=== PATIENT | male | born 2000 | race Caucasian/White ===

== ENCOUNTER 2022-08-27 18:04 | Inpatient (IN) | payer OTHER ==
[~2022-08-27] VITALS: Ht 170.2 cm; Wt 77.3 kg
[2022-08-27] MEDS ORDERED: fentaNYL 100 MCG/2 ML INJECTION IV ONE (18:35)
[2022-08-27] MEDS ORDERED: NS 1,000 ML IV SCH (18:50)
[2022-08-27 19:16] LABS: HEMOGLOBIN 13.7 g/dl (13.5-17.5); MEAN CORPUSCULAR HEMOGLOBIN 29.9 pg (27.0-33.0); MEAN CORPUSCULAR HGB CONC 34.3 g/dl (32.0-36.5); MEAN CORPUSCULAR VOLUME 87.3 fl (80.0-96.0); PLATELET COUNT, AUTOMATED 229 10^3/uL (150-450); RED BLOOD COUNT 4.58 10^6/uL (4.30-6.10); WHITE BLOOD COUNT 12.9 10^3/uL (4.0-10.0)
[2022-08-27] MEDS ORDERED: HOME MED LIST COMPLETE! XX SCH (19:30)
[2022-08-27 19:39] LABS: BLOOD UREA NITROGEN 13 MG/DL (9-23); CALCIUM LEVEL 8.8 MG/DL (8.5-10.1); CARBON DIOXIDE LEVEL 26 MMOL/L (20-31); CHLORIDE LEVEL 104 MMOL/L (98-107); CREATININE FOR GFR 1.16 MG/DL (0.70-1.30); GLOMERULAR FILTRATION RATE > 60.0 (>60); GLUCOSE, FASTING 100 MG/DL (60-100); POTASSIUM SERUM 4.5 MMOL/L (3.5-5.1); SODIUM LEVEL 140 MMOL/L (136-145)
[2022-08-27 19:55] LABS: RSV AMPLIFICATION NEGATIVE (NEGATIVE)
[2022-08-27] MEDS: ACETAMINOPHEN TAB 650MG DOSE (2X325MG) PO PRN (22:04)
[2022-08-27] MEDS: NS 1,000 ML IV SCH (22:04)
[2022-08-28] VITALS (12 sets, daily range): BP systolic 129–160; BP diastolic 61–90; O2SAT 96–99
[2022-08-28] MEDS: MORPHINE 2 MG/ML 1ML VIAL IV PRN ×3 (00:49→08:55)
[2022-08-28] MEDS ORDERED: carisoprodoL 350 MG TAB PO ONE (04:00)
[2022-08-28] MEDS: NS 1,000 ML IV SCH (05:45)
[2022-08-28] MEDS: HEPARIN SOD (PORCINE) 5000UNITS/ML 1ML VIAL/SYRINGE SC SCH ×2 (05:58→13:04)
[2022-08-28 06:15] LABS: HEMATOCRIT 39.2 % (42.0-52.0); HEMOGLOBIN 13.1 g/dl (13.5-17.5); MEAN CORPUSCULAR HEMOGLOBIN 30.3 pg (27.0-33.0); MEAN CORPUSCULAR HGB CONC 33.4 g/dl (32.0-36.5); MEAN CORPUSCULAR VOLUME 90.5 fl (80.0-96.0); PLATELET COUNT, AUTOMATED 198 10^3/uL (150-450); RED BLOOD COUNT 4.33 10^6/uL (4.30-6.10); WHITE BLOOD COUNT 7.9 10^3/uL (4.0-10.0)
[2022-08-28 06:43] LABS: BLOOD UREA NITROGEN 13 MG/DL (9-23); CALCIUM LEVEL 8.1 MG/DL (8.5-10.1); CARBON DIOXIDE LEVEL 30 MMOL/L (20-31); CHLORIDE LEVEL 104 MMOL/L (98-107); CREATININE FOR GFR 1.19 MG/DL (0.70-1.30); GLOMERULAR FILTRATION RATE > 60.0 (>60); GLUCOSE, FASTING 99 MG/DL (60-100); POTASSIUM SERUM 4.1 MMOL/L (3.5-5.1); SODIUM LEVEL 140 MMOL/L (136-145)
[2022-08-28] MEDS: ACETAMINOPHEN TAB 650MG DOSE (2X325MG) PO PRN ×2 (07:25→19:48)
[2022-08-28] MEDS ORDERED: SENOKOT S TAB PO PRN (09:30)
[2022-08-28] MEDS: oxyCODONE 5MG TAB PO PRN ×3 (12:36→22:51)
[2022-08-28] MEDS ORDERED: BACITRACIN OINTMENT 30GM TUBE As Ordered ONE (13:56)
[2022-08-28] MEDS ORDERED: TRANEXAMIC ACID 100 MG/ML 10ML VIAL As Ordered ONE (13:57)
[2022-08-28] MEDS ORDERED: ceFAZolin 2 GM/D5W 50 ML IV BAG As Ordered ONE (13:57)
[2022-08-28] MEDS ORDERED: VANCOMYCIN 1000MG/20ML VIAL As Ordered ONE (13:57)
[2022-08-28] MEDS ORDERED: propofoL 200 MG/20 ML VIAL As Ordered ONE (14:25)
[2022-08-28] MEDS ORDERED: LIDOCAINE 2% 100MG/5ML SDV (FOR ANES.) As Ordered ONE (14:25)
[2022-08-28] MEDS ORDERED: ONDANSETRON 4MG 2ML VIAL As Ordered ONE (14:25)
[2022-08-28] MEDS ORDERED: CLINDAMYCIN 900MG/50ML PREMIX BAG As Ordered ONE (14:41)
[2022-08-28] MEDS ORDERED: fentaNYL 100 MCG/2 ML INJECTION As Ordered ONE (14:43)
[2022-08-28] MEDS ORDERED: MIDAZOLAM INJ 2MG/2ML VIAL As Ordered ONE (14:43)
[2022-08-28] MEDS ORDERED: ACETAMINOPHEN 1000MG 100ML IV BAG As Ordered ONE (15:01)
[2022-08-28] MEDS ORDERED: LIDOCAINE W/EPINEPHRINE 1% 20ML VIAL As Ordered ONE (15:23)
[2022-08-28] MEDS ORDERED: BUPIVACAINE HCL 0.25% 30ML VIAL As Ordered ONE (15:23)
[2022-08-28] MEDS ORDERED: HYDROmorphone HCL 2MG/ML 1ML VIAL As Ordered ONE (16:53)
[2022-08-28] MEDS ORDERED: LR 1,000 ML IV SCH (18:00)
[2022-08-28] MEDS: fentaNYL 100 MCG/2 ML INJECTION IV PRN ×2 (18:08→18:20)
[2022-08-28] MEDS: CLINDAMYCIN 900 MG in IV 1 EA IV SCH (22:49)
[2022-08-29] MEDS: MORPHINE 2 MG/ML 1ML VIAL IV PRN ×3 (01:09→09:25)
[2022-08-29 03:50] VITALS: BP 146/89
[2022-08-29 06:12] LABS: BASO % 0.2 % (0.0-1.0); EOS # 0.1 10^3/uL (0.0-0.5); EOS % 0.5 % (0.0-3.0); HEMOGLOBIN 13.6 g/dl (13.5-17.5); LYMPH # 1.8 10^3/uL (1.5-5.0); LYMPH % 19.2 % (24.0-44.0); MEAN CORPUSCULAR HEMOGLOBIN 29.9 pg (27.0-33.0); MEAN CORPUSCULAR VOLUME 87.9 fl (80.0-96.0); MONO # 0.9 10^3/uL (0.0-0.8); MONO % 9.5 % (2.0-8.0); NEUTROPHILS # 6.4 10^3/uL (1.5-8.5); NEUTROPHILS % 70.3 % (36.0-66.0); PLATELET COUNT, AUTOMATED 224 10^3/uL (150-450); RED BLOOD COUNT 4.55 10^6/uL (4.30-6.10); WHITE BLOOD COUNT 9.2 10^3/uL (4.0-10.0)
[2022-08-29] MEDS: CLINDAMYCIN 900 MG in IV 1 EA IV SCH (06:35)
[2022-08-29 06:40] LABS: MAGNESIUM LEVEL 1.7 MG/DL (1.8-2.4)
[2022-08-29] MEDS: oxyCODONE 5MG TAB PO PRN (06:40)
[2022-08-29 06:42] LABS: ALBUMIN 3.7 G/DL (3.2-5.2); ALKALINE PHOSPHATASE 59 U/L (46-116); ALT/SGPT 26 U/L (7.0-40); AST/SGOT 48 U/L (<34); BILIRUBIN,TOTAL 1.1 MG/DL (0.3-1.2); BLOOD UREA NITROGEN 9 MG/DL (9-23); CALCIUM LEVEL 8.9 MG/DL (8.5-10.1); CARBON DIOXIDE LEVEL 29 MMOL/L (20-31); CHLORIDE LEVEL 97 MMOL/L (98-107); CREATININE FOR GFR 1.02 MG/DL (0.70-1.30); GLOMERULAR FILTRATION RATE > 60.0 (>60); GLUCOSE, FASTING 102 MG/DL (60-100); POTASSIUM SERUM 4.3 MMOL/L (3.5-5.1); SODIUM LEVEL 134 MMOL/L (136-145)
[2022-08-29] MEDS: ACETAMINOPHEN TAB 650MG DOSE (2X325MG) PO PRN (07:48)
[2022-08-29 07:50] VITALS: BP 152/86
[2022-08-29] MEDS ORDERED: HYDROMORPHONE HCL 0.5 MG/ 0.5 ML SYRINGE IV ONE (09:40)
[2022-08-29] MEDS ORDERED: NS 1,000 ML IV SCH (10:00)
[2022-08-29] MEDS ORDERED: KETOROLAC 30 MG/ML 1ML VIAL IV SCH (10:00)
[2022-08-29] MEDS ORDERED: OXYC-517 PO (11:42)
[2022-08-29] MEDS ORDERED: ONDA4TAB6 PO (11:42)
[2022-08-29] MEDS ORDERED: CELE1CAP4 PO (11:42)
[2022-08-29] MEDS ORDERED: COLA100C5 PO (11:42)
[2022-08-29] MEDS ORDERED: APAP325T4 PO (11:42)
[2022-08-29] MEDS ORDERED: NEUR300C PO (11:42)
[2022-08-29] MEDS ORDERED: ASPI81TA26 PO (11:42)
[2022-08-29 11:50] VITALS: BP 144/78
[2022-08-29] MEDS ORDERED: HEPARIN SOD (PORCINE) 5000UNITS/ML 1ML VIAL/SYRINGE SC SCH (14:00)
== END 2022-08-29 12:49 | disposition home or self-care (01) | DRG 493 ==
LOC: M ED 18:04 → M ED INP 19:41 → ENRESERV 08-28 14:23 → M MSPAV 08-28 18:50
PROVIDERS: ADMIT Family Medicine; ATTEND General Practice
PROC: 0QSH06Z Reposition Left Tibia with Intramedullary Internal Fixation Device, Open Approach (ICD-10-PCS; principal; 2022-08-28 15:00)
DX: S82.422A Displaced transverse fracture of shaft of left fibula, initial encounter for closed fracture (principal); E87.1 Hypo-osmolality and hyponatremia; S82.222A Displaced transverse fracture of shaft of left tibia, initial encounter for closed fracture; Y93.23 Activity, snow (alpine) (downhill) skiing, snowboarding, sledding, tobogganing and snow tubing; Y92.39 Other specified sports and athletic area as the place of occurrence of the external cause; W17.81XA Fall down embankment (hill), initial encounter; Y99.8 Other external cause status; E83.42 Hypomagnesemia